=== PATIENT | female | born 1945 | race Caucasian/White ===

== ENCOUNTER 2018-08-24 09:39 | Inpatient (IN) | payer MEDICARE, BC ==
[2018-08-24] MEDS: LACTATED RINGER'S 1,000 ML IV (10:55)
[2018-08-24] MEDS: SOD CHLORIDE 0.9% 1,000 ML IV (10:56)
[2018-08-24 11:14] LABS: ADD MAN DIFF? NO
[2018-08-24 11:16] LABS: WHITE BLOOD COUNT 9.6 10^3/ul (4.8-10.8)
[2018-08-24 11:16] LABS: BASOPHIL # 0.1 10^3/ul (0.0-0.1); BASOPHILS % 0.5 % (0.0-2.0); EOSINOPHILS # 0.1 10^3/ul (0.0-0.5); EOSINOPHILS % 1.1 % (0.0-7.0); HEMATOCRIT 49.7 % (37.0-47.0); HEMOGLOBIN 15.4 g/dl (12.0-16.0); LYMPHOCYTES # 1.6 10^3/ul (0.8-2.9); LYMPHOCYTES % 16.3 % (15.0-51.0); MEAN CORPUSCULAR HEMOGLOBIN 28.8 pg (29.0-33.0); MEAN CORPUSCULAR VOLUME 92.9 fl (82.0-101.0); MEAN PLATELET VOLUME 10.4 fl (7.4-10.4); MONOCYTE # 0.5 10^3/ul (0.3-0.9); NEUTROPHIL # 7.4 10^3/ul (1.6-7.5); NEUTROPHILS % 76.7 % (39.0-77.0); PLATELET COUNT 233 10^3/UL (140-415); RED BLOOD COUNT 5.35 10^6/ul (4.20-5.40); RED CELL DISTRIBUTION WIDTH 13.3 % (11.5-14.5)
[2018-08-24 11:40] LABS: ALANINE AMINOTRANSFERASE 28 IU/L (13-69); ALBUMIN/GLOBULIN RATIO 1.05; ALKALINE PHOSPHATASE 103 IU/L (42-121); ANION GAP 9 (5-13); ASPARTATE AMINO TRANSFERASE 28 IU/L (15-46); BILIRUBIN,INDIRECT 0.4 mg/dl (0-1.1); BILIRUBIN,TOTAL 0.4 mg/dl (0.2-1.3); BLOOD UREA NITROGEN 31 mg/dl (7-20); CALCIUM 9.1 mg/dl (8.4-10.2); CARBON DIOXIDE 32 mmol/L (21-31); CHLORIDE 105 mmol/L (97-110); CREATININE 0.76 mg/dl (0.44-1.00); GLUCOSE 101 mg/dl (70-220); LIPASE 137 U/L (23-300); POTASSIUM 4.1 mmol/L (3.5-5.1); SODIUM 146 mmol/L (135-144); TOTAL PROTEIN 7.8 g/dl (6.1-8.1)
[2018-08-24 11:51] LABS: TROPONIN-I < 0.012 ng/ml (0.000-0.120)
[2018-08-24 12:25] LABS: ADD UMIC YES; UR ASCORBIC ACID 40 mg/dL (NEGATIVE); UR BACTERIA FEW /HPF (NONE SEEN); UR BILIRUBIN (Dip) NEGATIVE (NEGATIVE); UR BLOOD (Dip) 1+ mg/dL (NEGATIVE); UR BUDDING YEAST FEW /HPF (NONE SEEN); UR CLARITY CLOUDY (CLEAR); UR COLOR YELLOW (YELLOW); UR GLUCOSE (Dip) NEGATIVE (NEGATIVE); UR KETONES (Dip) NEGATIVE (NEGATIVE); UR LEUKOCYTE ESTERASE (Dip) 3+ Leu/ul (NEGATIVE); UR MUCUS FEW /HPF (NONE SEEN); UR NITRITE (Dip) NEGATIVE (NEGATIVE); UR RBC 81 /HPF (0-5); UR SQUAMOUS EPITHELIAL CELL FEW /HPF (FEW); UR TOTAL PROTEIN (Dip) NEGATIVE (NEGATIVE); UR UROBILINOGEN (Dip) NEGATIVE (NEGATIVE); UR WBC > 182 /HPF (0-5)
[2018-08-24] MEDS: CEFTRIAXONE 1 GM/50 ML (PMX) 50 ML IVPB (12:53)
[2018-08-24] MEDS ORDERED: ACETAMINOPHEN 325 MG TAB PO (17:30)
[2018-08-24] MEDS ORDERED: ONDANSETRON 4 MG INJ IV (17:30)
[2018-08-24] MEDS ORDERED: NACL 0.9% 3 ML SYG IV (17:30)
[2018-08-24] MEDS ORDERED: DIPHENHYDRAMINE 25 MG CAP PO (18:00)
[2018-08-24] MEDS ORDERED: DIPHENHYDRAMINE 25 MG CAP GTB (18:30)
[2018-08-24] MEDS: SOD CHLORIDE 0.45% 1,000 ML IV (19:52)
[2018-08-24] MEDS ORDERED: RIFAXIMIN 550 MG TAB PO (21:00)
[2018-08-24] MEDS ORDERED: NON-FORMULARY/PATIENT OWN MED (Pravastatin Sodium* 20 MG) PO (21:00)
[2018-08-24] MEDS ORDERED: PRAMIPEXOLE 0.25 MG TAB PO (21:00)
[2018-08-24] MEDS: CARBIDOPA/LEVODOPA 25-100 (CR) TAB PO (22:42)
[2018-08-24] MEDS: PRAMIPEXOLE 0.25 MG TAB GTB (22:42)
[2018-08-24] MEDS: EZETIMIBE 10 MG TAB PO (22:42)
[2018-08-24] MEDS: MEMANTINE 10 MG TAB GTB (22:42)
[2018-08-24] MEDS: RIFAXIMIN 550 MG TAB GTB (22:42)
[2018-08-24] MEDS: ATORVASTATIN 10 MG TAB GTB (22:43)
[2018-08-24] MEDS ORDERED: ACETAMINOPHEN 650MG/20.3ML CUP GTB (23:30)
[2018-08-25 05:25] LABS: HEMOGLOBIN A1C 5.3 % (0-5.9)
[2018-08-25] MEDS: SOD CHLORIDE 0.45% 1,000 ML IV ×2 (05:51→16:43)
[2018-08-25] MEDS: MEMANTINE 10 MG TAB GTB ×2 (08:45→21:30)
[2018-08-25] MEDS: CARBIDOPA/LEVODOPA 25-100 (CR) TAB PO ×2 (08:46→21:30)
[2018-08-25] MEDS: RIFAXIMIN 550 MG TAB GTB ×2 (08:46→21:29)
[2018-08-25] MEDS: ERGOCALCIFEROL 50,000 UNIT CAP PO (08:46)
[2018-08-25] MEDS: DULOXETINE 30 MG CAP DR PO (08:46)
[2018-08-25] MEDS: ASPIRIN (EC) 325 MG TAB PO (08:47)
[2018-08-25] MEDS: ENOXAPARIN 40 MG/0.4 ML SYG SC (08:48)
[2018-08-25] MEDS ORDERED: PATIENT'S OWN MEDICATION XX (09:00)
[2018-08-25] MEDS ORDERED: CEFTRIAXONE 1 GM INJ IM (09:00)
[2018-08-25] MEDS ORDERED: NON-FORMULARY/PATIENT OWN MED (Memantine* (Namenda* XR) 28 MG) PO (09:00)
[2018-08-25] MEDS ORDERED: ARMODAFINIL 250 MG PO (09:00)
[2018-08-25] MEDS ORDERED: CARBIDOPA/LEVODOPA 50-200 (CR) TAB PO (09:00)
[2018-08-25 10:31] LABS: ADD MAN DIFF? NO
[2018-08-25 10:34] LABS: BASOPHIL # 0.1 10^3/ul (0.0-0.1); BASOPHILS % 0.7 % (0.0-2.0); EOSINOPHILS # 0.3 10^3/ul (0.0-0.5); HEMOGLOBIN 13.5 g/dl (12.0-16.0); LYMPHOCYTES % 29.9 % (15.0-51.0); MEAN CORPUSCULAR HEMOGLOBIN 29.2 pg (29.0-33.0); MEAN CORPUSCULAR HGB CONC 31.4 g/dl (32.0-37.0); MEAN CORPUSCULAR VOLUME 93.1 fl (82.0-101.0); MEAN PLATELET VOLUME 10.9 fl (7.4-10.4); MONOCYTE # 0.4 10^3/ul (0.3-0.9); MONOCYTES % 5.3 % (0.0-11.0); NEUTROPHILS % 59.8 % (39.0-77.0); PLATELET COUNT 195 10^3/UL (140-415); RED BLOOD COUNT 4.62 10^6/ul (4.20-5.40); RED CELL DISTRIBUTION WIDTH 13.2 % (11.5-14.5)
[2018-08-25 10:34] LABS: WHITE BLOOD COUNT 6.7 10^3/ul (4.8-10.8)
[2018-08-25 10:53] LABS: ALANINE AMINOTRANSFERASE 26 IU/L (13-69); ALBUMIN 3.2 g/dl (3.3-4.9); ALKALINE PHOSPHATASE 86 IU/L (42-121); ANION GAP 3 (5-13); ASPARTATE AMINO TRANSFERASE 33 IU/L (15-46); BILIRUBIN,INDIRECT 0.5 mg/dl (0-1.1); BILIRUBIN,TOTAL 0.5 mg/dl (0.2-1.3); BLOOD UREA NITROGEN 19 mg/dl (7-20); CALCIUM 7.8 mg/dl (8.4-10.2); CARBON DIOXIDE 29 mmol/L (21-31); CHLORIDE 109 mmol/L (97-110); CREATININE 0.66 mg/dl (0.44-1.00); GLUCOSE 85 mg/dl (70-220); MAGNESIUM 2.2 mg/dl (1.7-2.5); POTASSIUM 4.3 mmol/L (3.5-5.1); SODIUM 141 mmol/L (135-144); TOTAL PROTEIN 6.4 g/dl (6.1-8.1)
[2018-08-25] MEDS: CEFTRIAXONE 1 GM/50 ML (PMX) 50 ML IVPB (13:18)
[2018-08-25] MEDS: ALBUTEROL/IPRATROPIUM (NEB) 3 ML AMP HHN (20:34)
[2018-08-25] MEDS: EZETIMIBE 10 MG TAB PO (21:30)
[2018-08-25] MEDS: PRAMIPEXOLE 0.25 MG TAB GTB (21:30)
[2018-08-25] MEDS: ATORVASTATIN 10 MG TAB GTB (21:32)
[2018-08-26] MEDS ORDERED: VANCOMYCIN IV PER PHARMACY XX (08:00)
[2018-08-26 08:41] LABS: ADD MAN DIFF? NO
[2018-08-26 08:47] LABS: WHITE BLOOD COUNT 7.3 10^3/ul (4.8-10.8)
[2018-08-26 08:47] LABS: BASOPHILS % 0.5 % (0.0-2.0); EOSINOPHILS # 0.3 10^3/ul (0.0-0.5); EOSINOPHILS % 3.6 % (0.0-7.0); HEMATOCRIT 43.1 % (37.0-47.0); HEMOGLOBIN 13.7 g/dl (12.0-16.0); LYMPHOCYTES # 1.7 10^3/ul (0.8-2.9); LYMPHOCYTES % 22.6 % (15.0-51.0); MEAN CORPUSCULAR HEMOGLOBIN 29.6 pg (29.0-33.0); MEAN CORPUSCULAR HGB CONC 31.8 g/dl (32.0-37.0); MEAN CORPUSCULAR VOLUME 93.1 fl (82.0-101.0); MEAN PLATELET VOLUME 10.6 fl (7.4-10.4); MONOCYTE # 0.5 10^3/ul (0.3-0.9); MONOCYTES % 6.6 % (0.0-11.0); NEUTROPHIL # 4.9 10^3/ul (1.6-7.5); NEUTROPHILS % 66.4 % (39.0-77.0); PLATELET COUNT 202 10^3/UL (140-415); RED BLOOD COUNT 4.63 10^6/ul (4.20-5.40); RED CELL DISTRIBUTION WIDTH 13.1 % (11.5-14.5)
[2018-08-26 09:13] LABS: ANION GAP 5 (5-13); BLOOD UREA NITROGEN 13 mg/dl (7-20); CALCIUM 8.3 mg/dl (8.4-10.2); CARBON DIOXIDE 27 mmol/L (21-31); CHLORIDE 111 mmol/L (97-110); CREATININE 0.63 mg/dl (0.44-1.00); GLUCOSE 92 mg/dl (70-220); POTASSIUM 4.4 mmol/L (3.5-5.1); SODIUM 143 mmol/L (135-144)
[2018-08-26] MEDS: ENOXAPARIN 40 MG/0.4 ML SYG SC (09:28)
[2018-08-26] MEDS: MEMANTINE 10 MG TAB GTB ×2 (09:44→21:02)
[2018-08-26] MEDS: RIFAXIMIN 550 MG TAB GTB ×2 (09:44→21:02)
[2018-08-26] MEDS: CARBIDOPA/LEVODOPA 25-100 (CR) TAB PO ×2 (10:51→21:02)
[2018-08-26] MEDS: DULOXETINE 30 MG CAP DR PO (10:51)
[2018-08-26] MEDS: ASPIRIN (EC) 325 MG TAB PO (10:51)
[2018-08-26] MEDS: FLUCONAZOLE 200 MG TAB GTB (11:21)
[2018-08-26] MEDS: VANCOMYCIN 1 GM 250 ML IVPB (11:21)
[2018-08-26] MEDS: ARMODAFINIL 250 MG TABLET PO (11:22)
[2018-08-26 11:55] LABS: PROCALCITONIN 0.05 ng/mL (0.00-0.10)
[2018-08-26] MEDS: EZETIMIBE 10 MG TAB PO (21:02)
[2018-08-26] MEDS: PRAMIPEXOLE 0.25 MG TAB GTB (21:02)
[2018-08-26] MEDS: ATORVASTATIN 10 MG TAB GTB (21:02)
[2018-08-27 06:15] LABS: ADD MAN DIFF? NO
[2018-08-27 06:25] LABS: WHITE BLOOD COUNT 8.3 10^3/ul (4.8-10.8)
[2018-08-27 06:25] LABS: BASOPHILS % 0.5 % (0.0-2.0); EOSINOPHILS # 0.3 10^3/ul (0.0-0.5); EOSINOPHILS % 3.6 % (0.0-7.0); HEMATOCRIT 41.1 % (37.0-47.0); HEMOGLOBIN 13.2 g/dl (12.0-16.0); LYMPHOCYTES # 2.2 10^3/ul (0.8-2.9); MEAN CORPUSCULAR HEMOGLOBIN 29.5 pg (29.0-33.0); MEAN CORPUSCULAR HGB CONC 32.1 g/dl (32.0-37.0); MEAN CORPUSCULAR VOLUME 91.7 fl (82.0-101.0); MONOCYTE # 0.5 10^3/ul (0.3-0.9); NEUTROPHIL # 5.3 10^3/ul (1.6-7.5); NEUTROPHILS % 63.7 % (39.0-77.0); PLATELET COUNT 206 10^3/UL (140-415); RED BLOOD COUNT 4.48 10^6/ul (4.20-5.40)
[2018-08-27 06:51] LABS: ANION GAP 5 (5-13); BLOOD UREA NITROGEN 15 mg/dl (7-20); CARBON DIOXIDE 29 mmol/L (21-31); CHLORIDE 106 mmol/L (97-110); CREATININE 0.59 mg/dl (0.44-1.00); GLUCOSE 82 mg/dl (70-220); POTASSIUM 3.9 mmol/L (3.5-5.1); SODIUM 140 mmol/L (135-144)
[2018-08-27] MEDS: CARBIDOPA/LEVODOPA 25-100 (CR) TAB PO ×2 (10:02→21:24)
[2018-08-27] MEDS: FLUCONAZOLE 200 MG TAB GTB (10:02)
[2018-08-27] MEDS: ARMODAFINIL 250 MG TABLET PO (10:02)
[2018-08-27] MEDS: DULOXETINE 30 MG CAP DR PO (10:03)
[2018-08-27] MEDS: MEMANTINE 10 MG TAB GTB ×2 (10:03→21:24)
[2018-08-27] MEDS: RIFAXIMIN 550 MG TAB GTB ×2 (10:04→21:24)
[2018-08-27] MEDS: ASPIRIN (EC) 325 MG TAB PO (10:04)
[2018-08-27] MEDS: ENOXAPARIN 40 MG/0.4 ML SYG SC (10:06)
[2018-08-27] MEDS: VANCOMYCIN 750 MG (PMX) 250 ML IVPB (12:08)
[2018-08-27] MEDS: ATORVASTATIN 10 MG TAB GTB (21:24)
[2018-08-27] MEDS: EZETIMIBE 10 MG TAB PO (21:25)
[2018-08-27] MEDS: PRAMIPEXOLE 0.25 MG TAB GTB (21:25)
[2018-08-28] MEDS: MEMANTINE 10 MG TAB GTB ×2 (08:46→20:51)
[2018-08-28] MEDS: FLUCONAZOLE 200 MG TAB GTB (08:46)
[2018-08-28] MEDS: CARBIDOPA/LEVODOPA 25-100 (CR) TAB PO ×2 (08:46→20:52)
[2018-08-28] MEDS: ASPIRIN (EC) 325 MG TAB PO (08:46)
[2018-08-28] MEDS: DULOXETINE 30 MG CAP DR PO (08:46)
[2018-08-28] MEDS: RIFAXIMIN 550 MG TAB GTB ×2 (08:46→20:51)
[2018-08-28] MEDS: ARMODAFINIL 250 MG TABLET PO (08:47)
[2018-08-28] MEDS: ENOXAPARIN 40 MG/0.4 ML SYG SC (08:52)
[2018-08-28] MEDS: VANCOMYCIN 750 MG (PMX) 250 ML IVPB (11:13)
[2018-08-28] MEDS: PRAMIPEXOLE 0.25 MG TAB GTB (20:51)
[2018-08-28] MEDS: EZETIMIBE 10 MG TAB PO (20:52)
[2018-08-28] MEDS: ATORVASTATIN 10 MG TAB GTB (20:52)
[2018-08-29] MEDS: ENOXAPARIN 40 MG/0.4 ML SYG SC (09:08)
[2018-08-29] MEDS: RIFAXIMIN 550 MG TAB GTB (09:09)
[2018-08-29] MEDS: DULOXETINE 30 MG CAP DR PO (09:09)
[2018-08-29] MEDS: MEMANTINE 10 MG TAB GTB (09:09)
[2018-08-29] MEDS: ASPIRIN (EC) 325 MG TAB PO (09:09)
[2018-08-29] MEDS: ASCORBIC ACID 500 MG TAB PO ×2 (09:09→13:05)
[2018-08-29] MEDS: METHENAMINE 1 GM TAB PO (09:15)
[2018-08-29] MEDS: CARBIDOPA/LEVODOPA 25-100 (CR) TAB PO (09:26)
[2018-08-29] MEDS: ARMODAFINIL 250 MG TABLET PO (11:18)
[2018-08-29] MEDS ORDERED: NITROFURANTOIN (SR) 100 MG CAP PO (21:00)
== END 2018-08-29 18:20 | DRG 690 ==
LOC: E/R 09:39 → MS1 17:56
DX: N39.0 Urinary tract infection, site not specified (principal); E86.0 Dehydration; I95.9 Hypotension, unspecified; E78.5 Hyperlipidemia, unspecified; F01.50 Vascular dementia, unspecified severity, without behavioral disturbance, psychotic disturbance, mood disturbance, and anxiety; F32.9 Major depressive disorder, single episode, unspecified; I69.391 Dysphagia following cerebral infarction; R13.10 Dysphagia, unspecified; K72.90 Hepatic failure, unspecified without coma; M81.0 Age-related osteoporosis without current pathological fracture; R05 Cough; Z93.1 Gastrostomy status; Z87.891 Personal history of nicotine dependence
CPT/HCPCS: 36415; 71045; 80048; 80053; 81001; 83036; 83690; 83735; 84100; 84145; 84484; 85025; 87070; 87086; 93005; 94664; 97110; 97116; 97161; 97530; 99285-25